=== PATIENT | female | born 1960 | race Caucasian/White ===

== ENCOUNTER 2018-06-22 14:00 | Outpatient (RCR) | payer OTHER, SELFPAY ==
[2018-06-01 13:34] VITALS: BP 102/63; PULSE 64; RESP 18; TEMP 37.7; BMI 27.4
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
[2018-06-08 14:18] VITALS: BP 113/71; PULSE 69; RESP 16; TEMP 36.8; BMI 27.4
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
[2018-06-22 14:23] VITALS: BP 143/80; PULSE 64; RESP 16; TEMP 37; BMI 27.4
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
== END 2018-06-25 23:59 ==
LOC: WC 14:00
PROVIDERS: Visit Provider Family Medicine
DX: T24.311A Burn of third degree of right thigh, initial encounter (principal); T79.8XXA Other early complications of trauma, initial encounter; X16.XXXA Contact with hot heating appliances, radiators and pipes, initial encounter; E78.5 Hyperlipidemia, unspecified; I10 Essential (primary) hypertension; K21.9 Gastro-esophageal reflux disease without esophagitis; F32.9 Major depressive disorder, single episode, unspecified; F41.9 Anxiety disorder, unspecified; G89.29 Other chronic pain; Z79.899 Other long term (current) drug therapy; Z87.891 Personal history of nicotine dependence; S22.43XA Multiple fractures of ribs, bilateral, initial encounter for closed fracture
CPT/HCPCS: 11042; 11045; 87070; 87075; 87077; 87186; 87205; 99205; G0463

== ENCOUNTER 2018-07-13 11:58 | Outpatient (RCR) | payer SELFPAY ==
[2018-06-26 01:30] VITALS: BP 143/80; PULSE 64; RESP 16; TEMP 37
== END 2018-07-26 23:59 ==
LOC: WC 11:58
PROVIDERS: Visit Provider Family Medicine
DX: Z09 Encounter for follow-up examination after completed treatment for conditions other than malignant neoplasm (principal)

== ENCOUNTER 2018-08-17 13:45 | Outpatient (RCR) | payer MEDICAID, SELFPAY ==
[2018-07-27 01:31] VITALS: BP 143/80; PULSE 64; RESP 16; TEMP 37
[2018-08-17 14:17] VITALS: BP 139/75; PULSE 62; RESP 18; TEMP 36.4; BMI 27.4
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
== END 2018-08-23 23:59 ==
LOC: WC 13:45
PROVIDERS: Visit Provider Family Medicine
DX: Z09 Encounter for follow-up examination after completed treatment for conditions other than malignant neoplasm (principal)
CPT/HCPCS: 99213; G0463